=== PATIENT | female | born 1955 | race Caucasian/White ===

== ENCOUNTER → 2016-05-05 | Outpatient (CLI) | payer OTHER | LOC: FIMAGING 10:23 → MERGE 10:23 | DX: Z12.31 Encounter for screening mammogram for malignant neoplasm of breast (principal); Z80.3 Family history of malignant neoplasm of breast | CPT/HCPCS: G0202 ==

== ENCOUNTER → 2016-05-05 | Outpatient (CLI) | payer OTHER | LOC: FIMAGING 11:21 → EDSTATUS 11:27 → MERGE 11:27 → FIMAGING 11:27 | PROVIDERS: ATTEND Family Medicine | DX: R20.2 Paresthesia of skin (principal); M12.88 Other specific arthropathies, not elsewhere classified, other specified site ==

== ENCOUNTER → 2016-06-13 | Outpatient (CLI) | payer OTHER | LOC: CIMAGING 09:26 | PROVIDERS: ATTEND Family Medicine | DX: M51.36 Other intervertebral disc degeneration, lumbar region (principal); M53.3 Sacrococcygeal disorders, not elsewhere classified | CPT/HCPCS: 72131-PO ==

== ENCOUNTER → 2016-09-04 | Outpatient (CLI) | payer OTHER | LOC: FIMAGING 11:34 | PROVIDERS: ATTEND Registered Nurse | DX: M25.552 Pain in left hip (principal) ==